=== PATIENT | female | born 1995 | race Caucasian/White ===

== ENCOUNTER 2021-03-27 00:18 | Emergency (ER) | payer SELFPAY ==
[~2021-03-27] VITALS: Ht 59 cm; Wt 86.2 kg
[2021-03-27] MEDS ORDERED: RX-ALBUTEROL INHALER 8.5 GM HFA (PROAIR) IH STA (00:42)
[2021-03-27] MEDS ORDERED: BENZONATATE 100 MG (TESSALON) CAPSULE PO ONE (00:45)
[2021-03-27] MEDS ORDERED: ONDA4TAB11 PO (00:48)
[2021-03-27] MEDS ORDERED: BENZ100C18 PO (00:48)
--- NOTE | 2021-03-27 00:48 | ED Cough/URI ---
General Chief Complaint: Cough/Cold/Flu Symptoms Stated Complaint: COUGH,VOMITNG Nursing Triage Note: Pt arrives via POV from home with c/o cough; onset two days. Pt reports tonight she coughed until she had one episode of vomiting. Pt reports being vaccinated for COVID, but has not been tested recently. Source: patient Exam Limitations: no limitations History of Present Illness Date Seen by Provider: Mar 27, 2021 Time Seen by Provider: 00:35 Initial Comments The patient presents ER by POV with chief complaint of a cough and cold-like symptoms for 4 days. Tonight she was coughing so hard and could not stop that she says she vomited x1. No blood in the emesis. No fevers or chills. No known sick contacts. She has tried NyQuil for her symptoms without relief. She does not smoke or have any lung issues. Allergies and Home Medications Allergies Coded Allergies: Penicillins (Verified Allergy, Unknown, 03/27/21) coconut (Verified Allergy, Unknown, 03/27/21) Patient Home Medication List Home Medication List Reviewed: Yes Benzonatate (Tessalon Perles) 100 Mg Capsule, 100-200 MG PO Q6H PRN for COUGH Prescribed by: SHRUTI HIGUERA on 03/27/2147 Ondansetron (Ondansetron Odt) 4 Mg Tab.rapdis, 4 MG PO Q6H PRN for NAUSEA/VOMITING Prescribed by: SHRUTI HIGUERA on 03/27/218 Review of Systems Review of Systems Constitutional: No chills, No diaphoresis EENTM: No ear discharge, No ear pain Respiratory: cough; No short of breath Cardiovascular: No edema, No palpitations Gastrointestinal: No abdominal pain, No constipation, No diarrhea, No heartburn Genitourinary: No discharge, No dysuria Musculoskeletal: No back pain, No joint pain All Other Systems Reviewed Negative Unless Noted: Yes Past Nhxnmdx-Npdecs-Nlhpsa Hx Patient Social History Tobacco Use?: No Use of E-Cig and/or Vaping dev: No Substance use?: No Alcohol Use?: No Pt feels they are or have been: No Immunizations Up To Date COVID19 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 oz. kg; 247.00 BMI Method: General Appearance: WD/WN, no apparent distress Eyes: Bilateral Eye Normal Inspection, Bilateral Eye PERRL, Bilateral Eye EOMI HEENT: PERRL/EOMI, normal ENT inspection, TMs normal, pharynx normal Neck: full range of motion, normal inspection Respiratory: lungs clear, normal breath sounds, no respiratory distress, no accessory muscle use Cardiovascular: normal peripheral pulses, regular rate, rhythm Neurologic/Psychiatric: alert, normal mood/affect Progress/Results/Core Measures Suspected Sepsis SIRS Temperature: Pulse: 78 Respiratory Rate: 18 Blood Pressure 128 /98 Mean: 108 Results/Orders Lab Results Laboratory Tests Test 03/27/21 00:30 Range/Units Influenza Type A (RT-PCR) Not Detected Not Detecte Influenza Type B (RT-PCR) Not Detected Not Detecte SARS-CoV-2 RNA (RT-PCR) Not Detected Not Detecte My Orders Orders - SHRUTI HIGUERA Benzonatate Capsule (Tessalon Perles) (03/27/21 00:45) Rx-Albuterol Inhaler (Rx-Ventolin Hfa In (03/27/21 00:42) Covid 19 Inhouse Test (03/27/21 00:42) Influenza A And B By Pcr (03/27/21 00:42) Medications Given in ED Current Medications Medications Dose Ordered Sig/Almaz Route Start Time Stop Time Status Last Admin Dose Admin Benzonatate 100 mg ONCE ONCE PO 03/27/21 00:45 03/27/21 00:46 DC 03/27/21 00:54 100 MG Vital Signs/I&O 03/27/21 03/27/21 00:33 00:33 Temp 36.6 Pulse 78 Resp 18 B/P (MAP) 128/98 (108) Pulse Ox 96 O2 Delivery Room Air Room Air Capillary Refill : Less Than 3 Seconds Blood Pressure Mean: 108 Progress Note : Time: 00:45 Progress Note Lung sounds are clear but diminished. She appears to have bronchitis. We will give her some ProAir relisten to her and give her some Tessalon Perles. Covid and influenza swab Departure Impression Primary Impression: Viral upper respiratory tract infection with cough Additional Impression: Post-tussive emesis Disposition: 01 HOME, SELF-CARE Condition: Stable Departure-Patient Inst. Decision time for Depature: 00:46 Referrals: HARONO VILLEDA APRN (PCP/Family) Primary Care Physician Patient Instructions: Cough, Runny Nose, and the Common Cold (DC) Add. Discharge Instructions: If you have nausea you may take 1 tablet of Zofran under the tongue every 6 hours as necessary. Tessalon Perles 1 to 2 capsules every 6 hours as necessary for cough. You may continue to use [id number]-[id number] cough medicine as well as cough drops. Drink plenty of fluids. Humidifiers and vapor rubs will also be helpful. For persistent coughing or wheezing then you may also take 2 puffs of the albuterol inhaler every 4 hours through the spacer when needed. Follow-up with your primary care provider as necessary for persistent symptoms. All discharge instructions reviewed with patient and/or family. Voiced understanding. Scripts Ondansetron (Ondansetron Odt) 4 Mg Tab.rapdis 4 MG PO Q6H PRN for NAUSEA/VOMITING, #8 TAB 0 Refills Prov: SHRUTI HIGUERA 03/27/21 Benzonatate (TESSALON PERLES) 100 Mg Capsule 100-200 MG PO Q6H PRN for COUGH, #30 CAP 0 Refills Prov: SHRUTI HIGUERA 03/27/21 SHRUTI HIGUERA Mar 27, 2021 00:48
[2021-03-27 01:26] VITALS: BP 128/98
== END 2021-03-27 01:28 | disposition home or self-care (01) ==
LOC: EDUNIT# 00:18 → ER 00:24
DX: J06.9 Acute upper respiratory infection, unspecified (principal); R05.9 Cough, unspecified; R11.10 Vomiting, unspecified; Z20.822 Contact with and (suspected) exposure to COVID-19
CPT/HCPCS: 87636; 99283

== ENCOUNTER 2022-08-06 15:52 | Emergency (ER) | payer SELFPAY ==
[~2022-08-06] VITALS: Ht 149 cm; Wt 87.0 kg
[~2022-08-06 15:52] MED LIST: BENZ100C18 PO; ONDA4TAB11 PO
--- NOTE | 2022-08-06 17:05 | ED GU-Female ---
General Chief Complaint: - Reproductive Stated Complaint: PELVIC PAIN / BLEEDING Nursing Triage Note: Patient here with lower left pelvic pain with vaginal bleeding x 1 month; seen at [facility] er a couple wks ago and diagnosed with UTI; given abx and pt states she has taken all of them. Pt is on the depo shot x 1 year. Source: patient Exam Limitations: no limitations (ALEC ROSARIO) History of Present Illness Date Seen by Provider: Aug 06, 2022 Time Seen by Provider: 17:02 Initial Comments Patient is a 27-year-old female presents ED with pelvic pain and vaginal bleeding. Pelvic pain for the past 3 weeks and constant. She describes described pain as crampy with intermittent sharp severe pain bilateral lower abdomen. Pain has been constant and there are left and right lower quadrant with radiation to the right flank. She reports intermittent heavy vaginal bleeding. Today she reports spotting . She goes through 2 pads. she reports dark urine without any pain with urination, frequent urination, vaginal discharge. Not sexually active. History of endometriosis and PCOS. She states she went to [place] ER few weeks ago was diagnosed with UTI and was given antibiotics without much improvement. She denies nausea, vomit, diarrhea, headache, dizziness, chest pain, shortness of breath. Denies of any previous surgeries (ALEC ROSARIO) Allergies and Home Medications Allergies Coded Allergies: Penicillins (Verified Allergy, Unknown, 03/27/21) coconut (Verified Allergy, Unknown, 03/27/21) Patient Home Medication List Home Medication List Reviewed: Yes (ALEC ROSARIO) Benzonatate (Tessalon Perles) 100 Mg Capsule, 100-200 MG PO Q6H PRN for COUGH Prescribed by: SHRUTI HIGUERA on 03/27/2147 Ondansetron (Ondansetron Odt) 4 Mg Tab.rapdis, 4 MG PO Q6H PRN for NAUSEA/VOMITING Prescribed by: SHRUTI HIGUERA on 03/27/2147 Review of Systems Review of Systems Constitutional: No chills, No diaphoresis, No malaise EENTM: No ear pain, No blurred vision, No double vision Respiratory: No cough, No dyspnea on exertion Cardiovascular: No chest pain Gastrointestinal: abdominal pain; No diarrhea, No nausea, No vomiting Genitourinary: denies burning, denies discharge, denies dysuria; hematuria Musculoskeletal: No back pain, No joint pain Skin: No change in color (ALEC ROSARIO) All Other Systemes Reviewed Negative Unless Noted: Yes (ALEC ROSARIO) Past Udxjbcf-Kbxjmz-Fjpbhb Hx Patient Social History Smoking Status: Never a Smoker Smokeless Tobacco Frequency: Never a User Use of E-Cig and/or Vaping dev: No Use of E-Cig and/or Vaping Dhruv: Never a User Substance use?: No Substance type: Other Alcohol Use?: No Pt feels they are or have been: No (ALEC ROSARIO) Physical Exam Vital Signs Vital Signs - First Documented 08/06/22 16:23 Temp 37.0 Pulse 85 Resp 18 B/P (MAP) 142/92 (109) Pulse Ox 98 O2 Delivery Room Air (TYRON CARLOS MD) Vital Signs Capillary Refill : Less Than 3 Seconds (ALEC ROSARIO) Height, Weight, BMI Height: '" Weight: lbs. oz. kg; 39.00 BMI Method: General Appearance: WD/WN, no apparent distress HEENT: PERRL/EOMI, normal ENT inspection, TMs normal, pharynx normal Neck: non-tender, full range of motion, supple, normal inspection Cardiovascular: regular rate, rhythm, no edema, no gallop, no JVD Respiratory: chest non-tender, lungs clear, normal breath sounds, no respiratory distress, no accessory muscle use Gastrointestinal: normal bowel sounds, soft, no organomegaly, tenderness (Bilateral left and right lower quadrant tenderness) Extremities: normal range of motion, non-tender, normal inspection, no pedal edema Neurologic/Psychiatric: circular sawyer helper II-XII nml as tested, no motor/sensory deficits, alert, normal mood/affect, oriented x 3 Skin: normal color (ALEC ROSARIO) Progress/Results/Core Measures Suspected Sepsis SIRS Temperature: Pulse: 85 Respiratory Rate: 18 Laboratory Tests 08/06/22 17:13: White Blood Count 10.7 Blood Pressure 142 /92 Mean: 109 Laboratory Tests 08/06/22 17:13: Creatinine 0.81, INR Comment 0.9, Platelet Count 405H, Total Bilirubin 0.5 (ALEC ROSARIO Results/Orders Lab Results Laboratory Tests Test 08/06/22 17:13 08/06/22 17:37 Range/Units White Blood Count 10.7 4.3-11.0 10^3/uL Red Blood Count 5.27 H 3.80-5.11 10^6/uL Hemoglobin 13.2 11.5-16.0 g/dL Hematocrit 41 35-52 % Mean Corpuscular Volume 77 L 80-99 fL Mean Corpuscular Hemoglobin 25 25-34 pg Mean Corpuscular Hemoglobin Concent 32 32-36 g/dL Red Cell Distribution Width 14.4 10.0-14.5 % Platelet Count 405 H 130-400 10^3/uL Mean Platelet Volume 8.3 L 9.0-12.2 fL Immature Granulocyte % (Auto) 0 % Neutrophils (%) (Auto) 60 42-75 % Lymphocytes (%) (Auto) 30 12-44 % Monocytes (%) (Auto) 6 0-12 % Eosinophils (%) (Auto) 3 0-10 % Basophils (%) (Auto) 1 0-10 % Neutrophils # (Auto) 6.4 1.8-7.8 10^3/uL Lymphocytes # (Auto) 3.3 1.0-4.0 10^3/uL Monocytes # (Auto) 0.7 0.0-1.0 10^3/uL Eosinophils # (Auto) 0.3 0.0-0.3 10^3/uL Basophils # (Auto) 0.1 0.0-0.1 10^3/uL Immature Granulocyte # (Auto) 0.0 0.0-0.1 10^3/uL Prothrombin Time 12.4 12.2-14.7 SEC INR Comment 0.9 0.8-1.4 Activated Partial Thromboplast Time 26 24-35 SEC Sodium Level 137 135-145 MMOL/L Potassium Level 4.6 3.6-5.0 MMOL/L Chloride Level 108 H 98-107 MMOL/L Carbon Dioxide Level 17 L 21-32 MMOL/L Anion Gap 12 5-14 MMOL/L Blood Urea Nitrogen 13 7-18 MG/DL Creatinine 0.81 0.60-1.30 MG/DL Estimat Glomerular Filtration Rate 101 BUN/Creatinine Ratio 16 Glucose Level 86 70-105 MG/DL Calcium Level 9.2 8.5-10.1 MG/DL Corrected Calcium 8.9 8.5-10.1 MG/DL Total Bilirubin 0.5 0.1-1.0 MG/DL Aspartate Amino Transf (AST/SGOT) 30 5-34 U/L Alanine Aminotransferase (ALT/SGPT) 39 0-55 U/L Alkaline Phosphatase 108 40-136 U/L Total Protein 7.7 6.4-8.2 GM/DL Albumin 4.4 3.2-4.5 GM/DL Serum Test, Qualitative NEGATIVE NEGATIVE Urine Color DARK YELLOW Urine Clarity CLOUDY Urine pH 5.5 5-9 Urine Specific [place] >=1.030 1.016-1.022 Urine Protein NEGATIVE NEGATIVE Urine Glucose (UA) NEGATIVE NEGATIVE Urine Ketones NEGATIVE NEGATIVE Urine Nitrite NEGATIVE NEGATIVE Urine Bilirubin NEGATIVE NEGATIVE Urine Urobilinogen 0.2 < = 1.0 MG/DL Urine Leukocyte Esterase NEGATIVE NEGATIVE Urine RBC (Auto) 3+ H NEGATIVE Urine RBC TNTC H /HPF Urine WBC 2-5 /HPF Urine Squamous Epithelial Cells 0-2 /HPF Urine Crystals NONE /LPF Urine Bacteria FEW H /HPF Urine Casts NONE /LPF Urine Mucus NEGATIVE /LPF Urine Culture Indicated YES (TYRON CARLOS MD) Vital Signs/I&O 08/06/22 08/06/22 16:23 19:01 Temp 37.0 37.0 Pulse 85 85 Resp 18 18 B/P (MAP) 142/92 (109) 142/92 Pulse Ox 98 98 O2 Delivery Room Air Room Air (TYRON CARLOS MD) Vital Signs/I&O Capillary Refill : Less Than 3 Seconds (ALEC ROSARIO) Blood Pressure Mean: 109 Departure Communication (PCP) Patient presents the ED with worsening pelvic pain over the past 3 weeks with intermittent heavy vaginal bleeding. History of endometriosis and PCOS. Denies history of . Denies of any vaginal discharge or concern for STDs. Urinalysis was negative for infection but did note hematuria. Normal hemoglobin and white blood count. Chemistry was otherwise unremarkable. Discussed pelvic exam but patient refused the exam. She states it was recommended by her primary care physician and ER physician at [facility] after a recent visit to get an ultrasound which she has not followed up with. Due to the pelvic pain and location CT abdomen pelvis was ordered. She was a difficult IV and refused more attempts. Discussed ultrasound-guided IV but she refused. She agreed with CT abdomen and pelvis which was concerning for a possible uterine fibroid or left adnexa lesion, cyst. Patient met the criteria for outpatient ultrasound due to the characteristics of ovarian cyst on CT scan, pelvic pain greater than 24 hours and excessive vaginal bleeding. Outpatient ultrasound was ordered for 8:00 tomorrow for further evaluation. Does not appear to be an ovarian torsion secondary to the leave the pelvic pain but I am concerned for the mass, continued pelvic pain and heavy vaginal bleeding. Patient is recommend to follow-up with outpatient registration to get the ultrasound. Discussed with patient that these results will be faxed to the ER and primary care physician. Continue wearing pads. Further evaluation will be needed. Reviewed all outpatient visits, testing, H&P's from [facility]. (ALEC ROSARIO) Impression Primary Impression: Pelvic pain Additional Impressions: Abnormal vaginal bleeding Lesion of left ovary Disposition: 01 HOME, SELF-CARE Condition: Stable Departure-Patient Inst. Decision time for Depature: 18:50 (ALEC ROSARIO) Referrals: HAROON VILLEDA APRN (PCP/Family) Primary Care Physician Patient Instructions: Pelvic Pain ED Add. Discharge Instructions: Need to return back to the ER tomorrow registration for outpatient ultrasound 8am. Those results will be sent to your primary care physician. All discharge instructions reviewed with patient and/or family. Voiced understanding. ATTENDING PHYSICIAN NOTE: I was physically present as attending physician in the emergency department during the care of this patient, but I was not directly involved in the decision making or delivery of care for this patient. (TYRON CARLOS MD) ALEC ROSARIO Aug 06, 2022 17:05 TYRON CARLOS MD Aug 06, 2022 20:41
[2022-08-06 17:18] LABS: BASOPHILS # (AUTO) 0.1 10^3/uL (0.0-0.1); BASOPHILS % (AUTO) 1 % (0-10); EOSINOPHILS # (AUTO) 0.3 10^3/uL (0.0-0.3); EOSINOPHILS % (AUTO) 3 % (0-10); HEMATOCRIT 41 % (35-52); HEMOGLOBIN 13.2 g/dL (11.5-16.0); LYMPHOCYTES # (AUTO) 3.3 10^3/uL (1.0-4.0); LYMPHOCYTES % (AUTO) 30 % (12-44); MEAN CORPUSCULAR HEMOGLOBIN 25 pg (25-34); MEAN CORPUSCULAR HGB CONC 32 g/dL (32-36); MEAN CORPUSCULAR VOLUME 77 fL (80-99); MEAN PLATELET VOLUME 8.3 fL (9.0-12.2); MONOCYTES # (AUTO) 0.7 10^3/uL (0.0-1.0); MONOCYTES % (AUTO) 6 % (0-12); NEUTROPHILS # (AUTO) 6.4 10^3/uL (1.8-7.8); NEUTROPHILS % (AUTO) 60 % (42-75); PLATELET COUNT 405 10^3/uL (130-400); WHITE BLOOD COUNT 10.7 10^3/uL (4.3-11.0)
[2022-08-06 17:29] LABS: INR 0.9 (0.8-1.4); PROTHROMBIN TIME PATIENT 12.4 SEC (12.2-14.7)
[2022-08-06 17:42] LABS: BILIRUBIN,URINE NEGATIVE (NEGATIVE); CLARITY,URINE CLOUDY; COLOR,URINE DARK YELLOW; GLUCOSE, URINE (UA) NEGATIVE (NEGATIVE); KETONES,URINE NEGATIVE (NEGATIVE); LEUKOCYTE ESTERASE ,URINE NEGATIVE (NEGATIVE); NITRITE,URINE NEGATIVE (NEGATIVE); PH,URINE 5.5 (5-9); PROTEIN,URINE NEGATIVE (NEGATIVE)
[2022-08-06 17:49] LABS: ALBUMIN 4.4 GM/DL (3.2-4.5); POTASSIUM 4.6 MMOL/L (3.6-5.0)
[2022-08-06 17:50] LABS: CALCIUM 9.2 MG/DL (8.5-10.1)
[2022-08-06 17:52] LABS: TOTAL PROTEIN 7.7 GM/DL (6.4-8.2)
[2022-08-06 17:53] LABS: BILIRUBIN,TOTAL 0.5 MG/DL (0.1-1.0)
[2022-08-06 17:55] LABS: CREATININE SERUM 0.81 MG/DL (0.60-1.30)
[2022-08-06 17:56] LABS: BACTERIA,URINE FEW /HPF; RBC,URINE TNTC /HPF; SQUAMOUS EPITHELIAL CELL,UR 0-2 /HPF
--- NOTE | 2022-08-06 18:37 | Diagnostic Imaging Report ---
PROCEDURE: CT abdomen and pelvis without contrast. TECHNIQUE: Multiple contiguous axial images were obtained through the abdomen and pelvis without the use of intravenous contrast. Auto Exposure Controls were utilized during the CT exam to meet ALARA standards for radiation dose reduction. INDICATION: Right flank pain. COMPARISON: None. FINDINGS: There is no radiopaque urinary tract calculus. There is no hydroureteronephrosis. There is no perinephric or periureteric edema or stranding. The liver, gallbladder, bile ducts, spleen, adrenals and pancreas appear unremarkable. The aorta is nonaneurysmal. There is no small or large bowel obstruction. No ileus. No abnormal fecal loading. There is a left pelvic mass which is likely, but inconclusively, an exophytic fibroid off the mid to lower uterus; however, ovarian or adnexal mass could not be excluded. Correlative pelvic ultrasound suggested. There is no ascites. No acute or suspicious bony pathology. The lung bases nonacute. IMPRESSION: 1. Unobstructed nonacute urinary tracts with no hepatobiliary abnormality and a normal appendix. 2. Left pelvic mass and fullness in the left adnexa. It is unclear if this is exophytic uterine fibroid disease or adnexal/ovarian lesion. Follow-up with pelvic ultrasound recommended. 3. No other abnormality. In particular, no finding to explain the complaint of right-sided pain. Dictated by: Dictated on workstation # [id number]
[2022-08-06 19:01] VITALS: BP 142/92
== END 2022-08-06 19:02 | disposition home or self-care (01) ==
LOC: EDUNIT# 15:52 → ER 15:53
DX: N93.9 Abnormal uterine and vaginal bleeding, unspecified (principal); N83.9 Noninflammatory disorder of ovary, fallopian tube and broad ligament, unspecified
CPT/HCPCS: 36415; 74176; 80053; 81000; 84703; 85025; 85610; 85730; 87088

== ENCOUNTER → 2022-08-07 | Outpatient (CLI) | payer SELFPAY ==
--- NOTE | 2022-08-07 08:56 | Diagnostic Imaging Report ---
PROCEDURE: US Non-ob pelvis comp/trans. INDICATION: Abnormal CT imaging demonstrating left adnexal mass. Pelvic pain. TECHNIQUE: Multiple real time clark scale sonographic images were obtained of the pelvis transabdominally and endovaginally. CORRELATION STUDY: None FINDINGS: UTERUS: 5.2 x 2.7 x 4.3 cm. The uterus appearing unremarkable. ENDOMETRIUM: 0.4 cm. The endometrium is of normal thickness. RIGHT OVARY: 3.3 x 2.1 x 2 cm. LEFT OVARY: 4.9 x 2.7 x 4.0 cm. Small cysts and/or follicles of both ovaries are present. Intraovarian blood flow is demonstrated on the left. Intraovarian arterial flow of the right ovary cannot be confirmed. Some venous flow is detected. Small amount of pelvic fluid. IMPRESSION: 1. No definitive abnormal left adnexal mass. 2. Intraovarian arterial blood flow to the right ovary cannot be confirmed. Venous flow is suggested. Equivocal finding. Small cysts and/or follicles of both ovaries. Dictated by: Dictated on workstation # [id number]
== END ==
LOC: RAD 07:27
PROVIDERS: ATTEND Physician Assistant
DX: R19.09 Other intra-abdominal and pelvic swelling, mass and lump (principal); R10.2 Pelvic and perineal pain
CPT/HCPCS: 76830; 76856